=== PATIENT | female | born 1995 | race African-American/Black ===

== ENCOUNTER 2017-10-15 00:11 | Emergency (ER) | payer MEDICAID ==
[~2017-10-15] VITALS: Ht 175.3 cm; Wt 66.0 kg
[~2017-10-15 00:11] MED LIST: PROAIR
[2017-10-15] MEDS ORDERED: IBUPROFEN 600MG TABLET PO ONE (04:45)
[2017-10-15 06:05] VITALS: BP 121/69
== END 2017-10-15 06:40 | disposition home or self-care (01) ==
LOC: ER 00:11
DX: S69.82XA Other specified injuries of left wrist, hand and finger(s), initial encounter (principal); V00.211A Fall from ice-skates, initial encounter; Y93.21 Activity, ice skating; Y92.330 Ice skating rink (indoor) (outdoor) as the place of occurrence of the external cause
CPT/HCPCS: 29125; 73110; 81025; 99284

== ENCOUNTER 2018-10-25 20:40 | Emergency (ER) | payer SELFPAY ==
[~2018-10-25] VITALS: Ht 175.3 cm; Wt 65.0 kg
[2018-10-26] MEDS ORDERED: SODIUM CHLORIDE 0.9% 1,000 ML IV ONE (00:35)
[2018-10-26] MEDS ORDERED: ONDANSETRON HCL 4MG/2ML INJ IV ONE (00:45)
[2018-10-26] MEDS ORDERED: ACETAMINOPHEN 325MG TABLET PO PRN (00:45)
[2018-10-26 01:16] LABS: BASOPHILS % 0.6 % (0.0-2.0); EOSINOPHILS % 1.4 % (0.0-5.0); HEMATOCRIT. 38.6 % (36.0-48.0); HEMOGLOBIN. 13.2 g/dL (12.0-16.0); LYMPHOCYTES % 26.5 % (20.0-50.0); MEAN CORPUSCULAR HEMOGLOBIN 31.3 pg (28.0-32.0); MEAN CORPUSCULAR VOLUME 91.2 fL (81.0-99.0); MEAN PLATELET VOLUME 8.5 fl (7.4-10.4); MONOCYTES % 7.2 % (2.0-8.0); NEUTROPHILS % 64.3 % (40.0-76.0); PLATELET 329 x1000/uL (130-400); RED BLOOD CELL COUNT 4.23 mill/uL (4.2-5.4); RED CELL DISTRIBUTION WIDTH 12.2 % (11.6-14.6)
[2018-10-26 01:20] LABS: CHLORIDE 101 mEq/L (98-107)
[2018-10-26 01:43] LABS: B-HCG QUANTITATIVE 45606 mIU/mL (<3)
[2018-10-26 05:39] LABS: CLARITY URINE CLOUDY (CLEAR); COLOR URINE YELLOW (YELLOW); KETONES URINE 4+ (NEGATIVE); LEUKOCYTE ESTERASE URINE NEGATIVE (NEGATIVE); NITRITE URINE NEGATIVE (NEGATIVE); OCCULT BLOOD URINE NEGATIVE (NEGATIVE); PROTEIN URINE NEGATIVE (NEGATIVE); SPECIFIC GRAVITY URINE 1.036 (1.005-1.030)
[2018-10-26 06:00] VITALS: BP 102/51
== END 2018-10-26 06:35 | disposition home or self-care (01) ==
LOC: ER 20:40
DX: O20.0 Threatened abortion (principal); Z3A.01 Less than 8 weeks gestation of pregnancy
CPT/HCPCS: 36415; 76705; 76801; 76817; 80053; 81003; 81025; 83690; 84702; 85025; 86850; 86900; 86901; 96361; 96374; 99284; J2405; J7030

== ENCOUNTER 2019-08-18 00:33 | Emergency (ER) | payer MEDICAID ==
[~2019-08-18] VITALS: Ht 175.3 cm; Wt 70.0 kg
[2019-08-18 00:52] VITALS: BP 118/78
== END 2019-08-18 01:41 | disposition left against medical advice (07) ==
LOC: ER 00:33
DX: Z53.21 Procedure and treatment not carried out due to patient leaving prior to being seen by health care provider (principal)

== ENCOUNTER 2019-10-17 20:06 | Emergency (ER) | payer MEDICAID ==
[~2019-10-17] VITALS: Ht 175.3 cm; Wt 66.0 kg
[2019-10-17] MEDS ORDERED: IBUPROFEN 600MG TABLET PO ONE (21:15)
[2019-10-17 21:17] VITALS: BP 134/80
== END 2019-10-17 22:04 | disposition home or self-care (01) ==
LOC: ER 20:06
DX: S70.01XA Contusion of right hip, initial encounter (principal); V43.62XA Car passenger injured in collision with other type car in traffic accident, initial encounter; Y93.89 Activity, other specified; Y92.488 Other paved roadways as the place of occurrence of the external cause
CPT/HCPCS: 73522; 99283

== ENCOUNTER 2020-07-18 17:22 | Emergency (ER) | payer MEDICAID ==
[~2020-07-18] VITALS: Ht 175.3 cm; Wt 76.0 kg
[2020-07-18 22:23] VITALS: BP 129/71
== END 2020-07-18 22:29 | disposition home or self-care (01) ==
LOC: ER 17:22
DX: N92.0 Excessive and frequent menstruation with regular cycle (principal)
CPT/HCPCS: 76830; 76856; 81025; 99284

== ENCOUNTER 2022-10-05 12:00 | Emergency (ER) | payer MEDICAID ==
[~2022-10-05] VITALS: Ht 172.7 cm; Wt 75.0 kg
[2022-10-05] MEDS ORDERED: HYDROCODONE/ACETAMINOPHEN 5/325MG TABLET PO ONE (13:15)
[2022-10-05 14:04] VITALS: BP 133/73
[2022-10-05 14:15] LABS: HCG SCREEN NEGATIVE
== END 2022-10-05 15:36 | disposition home or self-care (01) ==
LOC: ER 12:00
DX: S16.1XXA Strain of muscle, fascia and tendon at neck level, initial encounter (principal); V49.9XXA Car occupant (driver) (passenger) injured in unspecified traffic accident, initial encounter; Y93.89 Activity, other specified; Y92.89 Other specified places as the place of occurrence of the external cause; Y99.8 Other external cause status
CPT/HCPCS: 70486; 81025; 84703; 99284

== ENCOUNTER 2023-01-14 20:39 | Emergency (ER) | payer MEDICAID, OTHER ==
[~2023-01-14] VITALS: Ht 175.3 cm; Wt 73.0 kg
[2023-01-14 22:26] LABS: BASOPHILS % 0.6 % (0.0-2.0); EOSINOPHILS % 1.1 % (0.0-5.0); HEMATOCRIT. 40.6 % (36.0-48.0); LYMPHOCYTES % 18.1 % (20.0-50.0); MEAN CORPUSCULAR HEMOGLOBIN 31.1 pg (28.0-32.0); MEAN CORPUSCULAR VOLUME 89.7 fL (81.0-99.0); MEAN PLATELET VOLUME 8.7 fl (7.4-10.4); MONOCYTES % 4.3 % (2.0-8.0); NEUTROPHILS % 75.9 % (40.0-76.0); PLATELET 389 x1000/uL (130-400); RED BLOOD CELL COUNT 4.52 mill/uL (4.2-5.4); RED CELL DISTRIBUTION WIDTH 12.2 % (11.6-14.6)
[2023-01-14 22:29] LABS: CHLORIDE 103 mEq/L (98-107)
[2023-01-14 22:57] LABS: B-HCG QUANTITATIVE > 200000 mIU/mL (<3)
[2023-01-15 02:54] LABS: CLARITY URINE TURBID (CLEAR); COLOR URINE DARK YELLOW (YELLOW); KETONES URINE 4+ (NEGATIVE); LEUKOCYTE ESTERASE URINE 2+ (NEGATIVE); NITRITE URINE NEGATIVE (NEGATIVE); OCCULT BLOOD URINE NEGATIVE (NEGATIVE); PH URINE 6.5 (4.5-8.0); PROTEIN URINE 1+ (NEGATIVE); SPECIFIC GRAVITY URINE 1.031 (1.005-1.030)
[2023-01-15] MEDS ORDERED: SODIUM CHLORIDE 0.9% 1,000 ML IV ONE (03:00)
[2023-01-15] MEDS ORDERED: DIPHENHYDRAMINE 50MG/ML VIAL IV ONE (03:00)
[2023-01-15] MEDS ORDERED: FAMOTIDINE 20MG/2ML VIAL IV ONE (03:00)
[2023-01-15] MEDS ORDERED: DOXY1TAB3 MT (04:09)
[2023-01-15] MEDS ORDERED: CEFP100T8 MT ×2 (04:09)
[2023-01-15] MEDS ORDERED: CEPH500C2 MT (04:20)
[2023-01-15 05:07] VITALS: BP 119/59
[2023-01-15] MEDS ORDERED: FAMO-135 MT (05:40)
== END 2023-01-15 05:09 | disposition home or self-care (01) ==
LOC: ER 20:39
DX: O21.0 Mild hyperemesis gravidarum (principal); O23.41 Unspecified infection of urinary tract in pregnancy, first trimester; N39.0 Urinary tract infection, site not specified; O26.891 Other specified pregnancy related conditions, first trimester; R10.13 Epigastric pain; Z3A.11 11 weeks gestation of pregnancy
CPT/HCPCS: 36415; 80053; 81003; 81025; 83690; 84702; 85025; 86850; 86900; 86901; 96361; 96374; 96375; 99284; J1200; J3490; J7030; Z7610